=== PATIENT | male | born 1950 | race Caucasian/White ===

== ENCOUNTER → 2017-05-23 | Outpatient (CLI) | payer OTHER ==
[~2017-05-23] VITALS: Ht 175.3 cm; Wt 63.0 kg
[~2017-05-23] MED LIST: ACCUPRIL20 MG PO; ASPIRIN81 M1 PO; BP MED; CELEXA20 MG PO; COLACE100 MG PO; DIABETIC MEDS; GLUCOPHAGE500 MG PO; GLUCOTROL10 MG PO; LANTUS (UNITS)1 UNIT SC; LIPITOR40 MG PO; LO-DOSE ASPIRIN81 M2 PO; NORCO 5/3251 TABLET PO
[2017-05-23 08:21] LABS: POINT-OF-CARE METER ID UU14107333
[2017-05-23 09:31] LABS: POINT-OF-CARE METER ID UU13113819
== END | disposition home or self-care (01) ==
LOC: AMB 05-05 07:00
PROVIDERS: Internal Medicine
PROC: 0DBN8ZX Excision of Sigmoid Colon, Via Natural or Artificial Opening Endoscopic, Diagnostic (ICD-10-PCS; principal; 2017-05-23)
DX: Z12.11 Encounter for screening for malignant neoplasm of colon (principal); K63.5 Polyp of colon; K57.30 Diverticulosis of large intestine without perforation or abscess without bleeding; K64.8 Other hemorrhoids; I10 Essential (primary) hypertension; E11.9 Type 2 diabetes mellitus without complications; J43.9 Emphysema, unspecified; E78.5 Hyperlipidemia, unspecified; F41.8 Other specified anxiety disorders; K21.9 Gastro-esophageal reflux disease without esophagitis; M81.0 Age-related osteoporosis without current pathological fracture; Z79.82 Long term (current) use of aspirin; Z79.4 Long term (current) use of insulin; Z72.0 Tobacco use
CPT/HCPCS: 82948; 88305; 93005; J2250; J3010